=== PATIENT | female | born 1990 | race Caucasian/White ===

== ENCOUNTER 2017-10-05 09:56 | Emergency (ER) | payer BC ==
[2017-10-05 10:09] VITALS: BP 107/74
--- NOTE | 2017-10-05 10:28 | UC ---
Back Pain HPI - HPI Summary HPI Summary: 27 yo female presents with left lower back and buttocks pain radiating down the back of her left leg. She tells me that she woke up 4 days ago and noticed some left buttock pain. Since that time her pain has been radiating into her left lower back and left leg. 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 She has been taking ibuprofen with mild relief, but relief does not last long. She denies dysuria, hematuria, vaginal discharge/bleeding, abdominal pain, n/v/d/c, numbness, tingling, saddle anesthesia, or loss of bowel/bladder control. - History of Current Complaint Chief Complaint: UCBackPain Stated Complaint: LOWER BACK PAIN Time Seen by Provider: 10/05/17 10:28 Hx Obtained From: Patient Hx Last Menstrual Period: 09/07/17 Onset/Duration: Sudden Onset Severity Initially: Moderate Severity Currently: Severe Pain Intensity: 8 Pain Scale Used: 0-10 Numeric - Allergies/Home Medications Allergies/Adverse Reactions: Allergies Allergy/AdvReac Type Severity Reaction Status Date / Time peanuts Allergy anaph Uncoded 10/05/17 10:10 Home Medications: Home Medications Norelgestromin/Ethin.estradiol [Xulane Patch] 1 patch .ROUTE WEEKLY 10/05/17 [ History Confirmed 10/05/17] PMH/Surg Hx/FS Hx/Imm Hx - Additional Past Medical History Additional PMH: None Previously Healthy: Yes - Surgical History Surgical History: Yes Surgery Procedure, Year, and Place: yazmin - Family History Known Family History: Positive: None - Social History Occupation: Employed Full-time Lives: With Family Alcohol Use: Rare Substance Use Type: None Smoking Status (MU): Never Smoked Tobacco Review of Systems Constitutional: Negative Skin: Negative Respiratory: Negative Cardiovascular: Negative Gastrointestinal: Negative Genitourinary: Negative Neurovascular: Negative Musculoskeletal: Other: - Low back pain Neurological: Negative Psychological: Negative All Other Systems Reviewed And Are Negative: Yes Physical Exam - Summary Physical Exam Summary: GENERAL: NAD. WDWN. No pain distress. SKIN: No rashes, sores, lesions, or open wounds. NECK: Supple. FROM. Nontender. No lymphadenopathy. CHEST: CTAB. No r/r/w. No accessory muscle use. Breathing comfortably and in no distress. CV: RRR. Without m/r/g. Pulses intact. Brisk cap refill. MSK: Mild TTP over left lumbar paraspinal muscles and moderate TTP over left SI. Pain with flexion and extension of spine. Positive SLR b/l - strong positive on LEFT. Strength symmetric B/L LEs including dorsiflexion and plantar flexion. FROM B/L LEs. No edema. NEURO: Alert. CN II-XII grossly intact. Sensations intact B/L LEs L3-S1. PSYCH: Age appropriate behavior. Triage Information Reviewed: Yes Vital Signs: Initial Vital Signs Temp 98 F 10/05/17 10:06 Pulse 78 10/05/17 10:06 Resp 17 10/05/17 10:06 BP 107/74 10/05/17 10:06 Pulse Ox 100 10/05/17 10:06 Vital Signs Reviewed: Yes Back Pain Course/Dx - Course Course Of Treatment: Toradol 60mg IM given in clinic. Rx for flexeril prn and tylenol #3 prn. Advised to apply heat and do low back exercises. F/u with PT. [facility] Reference #: [id number] - Differential Dx/Diagnosis Provider Diagnoses: Left sciatica Discharge - Sign-Out/Discharge Documenting (check all that apply): Patient Departure - Discharge Plan Condition: Stable Disposition: HOME Prescriptions: Acetaminophen with Codeine [Acetaminophen-Cod #3 Tablet] 1 each PO DAILY PRN #5 tablet MDD 1 PRN Reason: Pain Cyclobenzaprine TAB* [Flexeril 10 MG TAB*] 10 mg PO BID PRN #14 tab PRN Reason: Pain Patient Education Materials: Sciatica (ED), Lower Back Exercises (ED) Forms: *Work Release Referrals: Christie Kauffman DO [Primary Care Provider] - Additional Instructions: If you develop a fever, shortness of breath, chest pain, new or worsening symptoms - please call your PCP or go to the ED. - Billing Disposition and Condition Condition: STABLE Disposition: Home
[2017-10-05] MEDS ORDERED: Ketorolac INJ* 60 MG/2 ML VIAL IM ONE (10:38)
== END 2017-10-05 11:30 | disposition home or self-care (01) ==
LOC: UCEAST 09:56
DX: M54.42 Lumbago with sciatica, left side (principal); Z79.3 Long term (current) use of hormonal contraceptives; Z91.010 Allergy to peanuts
CPT/HCPCS: 96372; 99212; G0463; J1885

== ENCOUNTER 2017-10-13 15:44 | Emergency (ER) | payer SELFPAY ==
[2017-10-13 15:57] VITALS: BP 127/87
--- NOTE | 2017-10-13 17:09 | RAD ---
INDICATION: Back pain COMPARISON: None TECHNIQUE: Routine PA, lateral, and oblique imaging was performed . FINDINGS: Bones: There are no acute bony findings. There are no significant osteoarthritic findings. Alignment: Normal Disc spaces: The disc spaces are well-maintained Soft tissues: There are no soft tissue abnormalities. IMPRESSION: NEGATIVE EXAMINATION.
--- NOTE | 2017-10-13 17:20 | UC ---
Back Pain HPI - HPI Summary HPI Summary: Patient suffered from a bout of back pain last week. She was seen at the urgent care prescribed muscle relaxer Tylenol and codeine then went on to see her primary care who gave her a package steroids. 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 She re-injured her back chasing after the child. Patient has physical therapy planned patient is still on steroids patient has no deficits distally no anesthesia no bowel or bladder issues - History of Current Complaint Chief Complaint: UCBackPain Stated Complaint: BACK INJURY Time Seen by Provider: 10/13/17 16:17 Hx Obtained From: Patient Hx Last Menstrual Period: 09/07/17 ?: No Onset/Duration: Sudden Onset Timing: Constant Pain Intensity: 4 Pain Scale Used: 0-10 Numeric Back Pain: Is Discrete @ - lumbar back left sciatica Character: Aching, Throbbing, Spasmodic, Stiffness Aggravating Factor(s): Movement Associated Signs And Symptoms: Positive: Negative Related History: Occupational Injury, Previous Back Injury - Allergies/Home Medications Allergies/Adverse Reactions: Allergies Allergy/AdvReac Type Severity Reaction Status Date / Time peanuts Allergy anaph Uncoded 10/13/17 15:57 Home Medications: Home Medications methylPREDNISolone [Medrol Dosepak 4 MG*] 4 mg PO DAILY 10/13/17 [History Confirmed 10/13/17] PMH/Surg Hx/FS Hx/Imm Hx Previously Healthy: Yes - Surgical History Surgical History: Yes Surgery Procedure, Year, and Place: yazmin - Family History Known Family History: Positive: None - Social History Occupation: Employed Full-time Lives: With Family Alcohol Use: Rare Substance Use Type: None Smoking Status (MU): Never Smoked Tobacco Review of Systems Constitutional: Negative Skin: Negative Eyes: Negative ENT: Negative Respiratory: Negative Cardiovascular: Negative Gastrointestinal: Negative Genitourinary: Negative Motor: Negative Neurovascular: Negative Musculoskeletal: Arthralgia - low back pain/left sciatic pain Neurological: Negative Psychological: Negative Is Patient Immunocompromised?: No All Other Systems Reviewed And Are Negative: Yes Physical Exam Triage Information Reviewed: Yes Appearance: No Pain Distress, Well-Nourished Vital Signs: Initial Vital Signs Temp 97.3 F 10/13/17 15:53 Pulse 108 10/13/17 15:53 Resp 20 10/13/17 15:53 BP 127/87 10/13/17 15:53 Pulse Ox 100 10/13/17 15:53 Vital Signs Reviewed: Yes Eye Exam: Normal Eyes: Positive: Conjunctiva Clear ENT Exam: Normal ENT: Positive: Normal ENT inspection, Hearing grossly normal. Negative: Trismus , Muffled voice, Hoarse voice Dental Exam: Normal Neck exam: Normal Neck: Positive: Supple, Nontender, No Lymphadenopathy Respiratory Exam: Normal Respiratory: Positive: Chest non-tender, No respiratory distress, No accessory muscle use Cardiovascular Exam: Normal Cardiovascular: Positive: RRR, Pulses Normal, Brisk Capillary Refill Abdomen Description: Negative: CVA Tenderness (R), CVA Tenderness (L) Bowel Sounds: Positive: Present Musculoskeletal Exam: Normal Musculoskeletal: Positive: Strength Intact, ROM Intact, No Edema Neurological Exam: Normal Neurological: Positive: Alert, Muscle Tone Normal Psychological Exam: Normal Skin Exam: Normal Diagnostics - Radiology No standard instances Xray Interpretation: No Acute Changes Radiology Interpretation Completed By: ED Physician, Radiologist - Patient Name : MIKKI RUSSELL Medical Record# : [id number] Ordering Physician: Siimn Saucedo NP Acct.#: [id number] : 1990 Age: 27 Sex: F Location: [facility] Exam Date: 10/13 1624 ADM Status: REG ER Order Information: SP LUMBARSACRAL 4+ VWS Accession Number: [id number] CPT: 51747 INDICATION: Back pain COMPARISON: None TECHNIQUE: Routine PA, lateral, and oblique imaging was performed . FINDINGS: Bones: There are no acute bony findings. There are no significant osteoarthritic findings. Alignment: Normal Disc spaces: The disc spaces are well-maintained Soft tissues: There are no soft tissue abnormalities. IMPRESSION: NEGATIVE EXAMINATION. < Electronically signed by Todd Eddy MD in [place]> 10/13/171705 Dictated By : Todd Eddy MD Dictated Date/Time: 10/13/171705 Transcribed Date/Time: 10/13/171705 Copy to: CC:Christie Kauffman DO; Simin Saucedo CLAIM CLINICIAN; Todd Castro MD Imaging - [facility] Imaging - [facility] [address] [address] ph ) ph ([phone]) ph ([phone]) This report is only to be considered final once signed by the Provider(s) as displayed in the "< Electronically Signed by >" field (s). Absence of a signature indicates the report is in a draft status and still needs to be finalized. In the event this document was created by someone other than the signing Provider, the individual initiating the document will be listed in the "Entered by:" or "Dictated by:" joseph. 1 of 1 Back Pain Course/Dx - Course Course Of Treatment: continue meds as RX, physical therapy and follow with pcp - Differential Dx/Diagnosis Provider Diagnoses: Lumbar back pain Discharge - Sign-Out/Discharge Documenting (check all that apply): Patient Departure - Discharge Plan Condition: Stable Disposition: HOME Patient Education Materials: Low Back Strain (ED), Lower Back Exercises (ED) Forms: *Work Release Referrals: Christie Kauffman DO [Primary Care Provider] - 1 Week - Billing Disposition and Condition Condition: STABLE Disposition: Home
== END 2017-10-13 17:25 | disposition home or self-care (01) ==
LOC: UCEAST 15:44
DX: M54.42 Lumbago with sciatica, left side (principal)
CPT/HCPCS: 72110; 81003; 84702; 99211; G0463